=== PATIENT | female | born 2000 | race American Indian/Alaskan Native ===

== ENCOUNTER 2020-11-29 06:05 | Emergency (ER) | payer MEDICAID ==
--- NOTE | 2020-11-29 07:32 | Emergency Department Report ---
ED General Adult HPI - General Chief complaint: Upper Respiratory Infection Stated complaint: CHEST PAIN;SOB;DIZZY Time Seen by Provider: 11/29/20 07:27 Source: patient Mode of arrival: Ambulatory Limitations: No Limitations - History of Present Illness Initial comments: 20-year-old female patient with history of asthma presents to the emergency department with complaints of chest pain and shortness of breath starting 3 days ago. Patient states symptoms are inconsistent with prior asthma exacerbations. Describes the chest pain as "sharp," localized to the right anterolateral chest wall, easily reproducible with movement and palpation. No known sick contacts. No current steroid or antibiotic use. No recent travel. No venous thromboembolism risk factors identified on history. No history of tobacco use. No history of hypertension, hyperlipidemia, diabetes. No family history of early heart disease. LMP three weeks ago; denies possibility of . Patient has not delivered or aborted in the last six weeks. Denies fever, chills, cough, wheezing, palpitations, syncope, lower extremity pain/swelling. Denies all other complaints at this time. - Related Data Previous Rx's Medication Instructions Recorded Last Taken Type Acetaminophen [Non-Aspirin Extra 500 mg PO Q6HR PRN #30 tablet 04/04/20 Unknown Rx Strength] Albuterol Sulfate [Proair 90 mcg IH Q4HR PRN #2 aer.pow.ba 04/04/20 Unknown Rx Respiclick] Benzonatate [Tessalon Perles] 100 mg PO Q8HR PRN #30 capsule 04/04/20 Unknown Rx EPINEPHrine [Epipen 2-Rangel] 0.3 mg IM DAILY PRN #2 ml 04/04/20 Unknown Rx predniSONE [Deltasone] 40 mg PO QDAY #8 tab 04/04/20 Unknown Rx Lidocaine [Lidoderm] 1 each TP BID #20 adh..patch 11/29/20 Unknown Rx Naproxen 500 mg PO BID #20 tablet 11/29/20 Unknown Rx Allergies Allergy/AdvReac Type Severity Reaction Status Date / Time No Known Allergies Allergy Unverified 04/04/20 09:35 ED Review of Systems ROS: Stated complaint: CHEST PAIN;SOB;DIZZY Other details as noted in HPI Other: GENERAL: Negative for fever, chills, weight change, anorexia, fatigue. ENT: Negative for ear pain, difficulty hearing, sore throat, nasal congestion, epistaxis. CARDIOVASCULAR: Positive for chest pain. PULMONARY: Positive for shortness of breath GASTROINTESTINAL: Negative for abdominal pain, nausea, vomiting, diarrhea, constipation. MUSCULOSKELETAL: Negative for joint pain, joint swelling, myalgias, back pain, neck pain. NEUROLOGICAL: Positive for dizziness. INTEGUMENTARY: Negative for erythema, rash, diaphoresis, laceration, ecchymosis. HEMATOLOGICAL: Negative for hemoptysis, hematemesis, hematochezia, hematuria. PSYCHIATRIC: Negative for hallucinations, suicidal ideation, homicidal ideation, anxiety, depression. ED Past Medical Hx - Past Medical History Hx Asthma: Yes - Social History Smoking Status: Never Smoker - Medications Home Medications: Home Medications Medication Instructions Recorded Confirmed Last Taken Type Acetaminophen [Non-Aspirin Extra 500 mg PO Q6HR PRN #30 tablet 04/04/20 Unknown Rx Strength] Albuterol Sulfate [Proair 90 mcg IH Q4HR PRN #2 aer.pow.ba 04/04/20 Unknown Rx Respiclick] Benzonatate [Tessalon Perles] 100 mg PO Q8HR PRN #30 capsule 04/04/20 Unknown Rx EPINEPHrine [Epipen 2-Rangel] 0.3 mg IM DAILY PRN #2 ml 04/04/20 Unknown Rx predniSONE [Deltasone] 40 mg PO QDAY #8 tab 04/04/20 Unknown Rx Lidocaine [Lidoderm] 1 each TP BID #20 adh..patch 11/29/20 Unknown Rx Naproxen 500 mg PO BID #20 tablet 11/29/20 Unknown Rx ED Physical Exam - General Limitations: No Limitations - Other Other exam information: General: Awake and alert. No acute distress. BMI >30. Head: Atraumatic, normocephalic. Eyes: EOMI. Pupils are equal and round. Normal sclera and conjunctiva. ENT: Oral mucosa is moist. Normal pharyngeal exam. Neck: Supple. No lymphadenopathy. Pulmonary: No respiratory distress. Clear to auscultation bilaterally. Breath sounds equal and present bilaterally. Breathing is non-paradoxical. Cardiac: Regular rate and rhythm. Pulses are palpable and equal bilaterally. No lower extremity cyanosis or edema. Tenderness to palpation along right anterolateral chest wall without crepitus or overlying skin changes. Skin: Warm and dry. No rashes. Abdomen: Soft, non-tender, non-protuberant. No guarding, rigidity, or rebound. Bowel sounds are normal. No organomegaly or masses noted. Back: Normal alignment. No CVA tenderness. Extremities: Symmetrical. Full range of motion intact. Neurological: Alert and oriented, appropriately interactive, no focal deficits. Psych: Cooperative. Appropriate mood and affect. Speech is evenly metered. Thoughts are logically construed. ED Course Vital Signs 11/29/20 06:10 Temperature 97.8 F Pulse Rate 68 Respiratory 18 Rate O2 Sat by Pulse 99 Oximetry ED Medical Decision Making - EKG Data 11/29/20 08:26 EKG shows bradycardia with a ventricular rate of 55 bpm, irregular. First- degree AV block with OK interval of 201 ms. Normal axis. Normal QT interval. Good R wave progression. No ST segment changes. Unchanged when compared with prior EKG in 2019. Over read by attending emergency physician, who agrees with this interpretation. 11/29/20 10:30 - Medical Decision Making Differential diagnosis including but not limited to: asthma exacerbation, pleural effusion, pneumothorax, pulmonary embolism, pericarditis, pericardial effusion/cardiac tamponade, costochondritis Patient presents to the emergency department with signs and/or symptoms that arise low risk clinical suspicion for pulmonary embolism. The patient has none of the following clinical criteria: age >50, heart rate >100, room air O2 saturation <94%, history of DVT/PE, recent trauma/surgery, hemoptysis, exogenous estrogen, or signs/symptoms of DVT. As a result, this patient has very low probability of pulmonary embolism and further testing is not indicated. On reevaluation, patient remains stable. She is afebrile, vital signs are stable, no respiratory distress. EKG reviewed with attending emergency physician; unchanged from prior tracing in 2019. Chest x-ray without acute process. Exceedingly low clinical suspicion for acute coronary syndrome; no r isk factors identified on history, anterolateral chest pain is sharp and easily reproducible. Suspect patient's chest pain is musculoskeletal in nature. Patient will be discharged home with appropriate analgesics and referred to primary care provider for close outpatient follow-up. Patient expressed understanding and is agreeable to plan of care. Strict return precautions provided. Repeat exam is unremarkable and benign. History, exam, diagnostic testing, and current condition do not suggest worrisome pathology to warrant further testing, continued ED treatment, admission, or surgical evaluation at this point. Given the low probability of a significant medical illness, it would be more likely to result in harm than benefit to perform further testing at this stage. Discussed findings, presumptive diagnosis, need for follow-up and specific signs/symptoms that should prompt immediate return to the emergency department. Instructions were explained in detail to the patient in addition to giving written discharge information. Patient expressed understanding and was given the opportunity to ask questions, all of which were satisfactorily answered prior to discharge home. Case discussed with Dr. Paulino, attending emergency physician, who agrees with diagnostic work-up/plan of care. Critical care attestation.: If time is entered above; I have spent that time in minutes in the direct care of this critically ill patient, excluding procedure time. ED Disposition Clinical Impression: Nonspecific chest pain Disposition: - TO HOME OR SELFCARE Is pt being admited?: No Does the pt Need Aspirin: No Condition: Stable Instructions: Nonspecific Chest Pain, Adult Additional Instructions: Take Tylenol every 4 hours as needed for pain. Take Naprosyn twice daily with food as needed for pain. Apply Lidoderm patches to affected area as needed for pain. Apply heat to affected area as needed for pain. Follow-up with your primary care provider this week. Call today to schedule an appointment. Return to the emergency department immediately for new or worsening symptoms. Prescriptions: Lidocaine [Lidoderm] 1 each TP BID #20 adh..patch Naproxen 500 mg PO BID #20 tablet Referrals: AZALEA HAGAN MD [Other] - 3-5 Days Forms: Work/School Release Form(ED) Time of Disposition: 10:32
--- NOTE | 2020-11-29 09:07 | XRay Report ---
CHEST 2 VIEWS INDICATION: chest pain. COMPARISON: 04/04/2020 FINDINGS: Support devices: None. Heart: Within normal limits. Lungs/pleura: No acute air space or interstitial disease. No pneumothorax. Additional findings: None. IMPRESSION: No acute findings. Signer Name: Morgan Rico Jr, MD Signed: 11/29/2020 9:03 AM Workstation Name: [id number]
--- NOTE | 2020-11-29 10:32 | Electrocardiograph Report ---
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
== END 2020-11-29 10:45 | disposition home or self-care (01) ==
LOC: ED 06:05
DX: R07.89 Other chest pain (principal); J45.909 Unspecified asthma, uncomplicated; Z79.899 Other long term (current) drug therapy
CPT/HCPCS: 71046; 93005

== ENCOUNTER 2021-01-23 20:30 | Emergency (ER) | payer MEDICAID ==
[2021-01-23 21:25] VITALS: BP 110/60
--- NOTE | 2021-01-23 21:35 | XRay Report ---
RIGHT ANKLE 3 VIEW(S) INDICATION / CLINICAL INFORMATION: Lower Extremity Injury...fell down stairs COMPARISON: None available. FINDINGS: BONES / JOINT(S): No acute fracture or subluxation. No significant arthritis. SOFT TISSUES: There is soft tissue swelling over the lateral malleolus. ADDITIONAL FINDINGS: None. Signer Name: Selwyn Serrano MD Signed: 01/23/2021 9:31 PM Workstation Name: [id number]
[2021-01-23] MEDS ORDERED: ACETAMINOPHEN 325 MG TAB PO ONE (22:14)
[2021-01-23] MEDS ORDERED: IBUPROFEN 600 MG TAB PO ONE (22:14)
--- NOTE | 2021-01-23 22:19 | Emergency Department Report ---
ED Lower Extremity HPI - General Chief Complaint: Extremity Injury, Lower Stated Complaint: RT ANKLE PAIN Time Seen by Provider: 01/23/21 21:35 Source: patient Mode of arrival: Wheelchair Limitations: Physical Limitation - History of Present Illness Initial Comments: 20 year old female presents to ED complaining of right lower leg/ankle pain. Patient states she slipped on steps because it was wet. She states that she slid down 4 steps and heard a pop in her right lower leg right ankle at the time she fell. Since then she has been having severe pain in her right ankle and right lower leg swelling over the lateral aspect of her right ankle and pain with ambulation and weightbearing. She states that this incident occurred around 7 PM at home. She denies any head injury. She reports no other symptoms at this time. 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 denies: numbness, tingling - Related Data Previous Rx's Medication Instructions Recorded Last Taken Type Acetaminophen [Non-Aspirin Extra 500 mg PO Q6HR PRN #30 tablet 04/04/20 Unknown Rx Strength] Albuterol Sulfate [Proair 90 mcg IH Q4HR PRN #2 aer.pow.ba 04/04/20 Unknown Rx Respiclick] Benzonatate [Tessalon Perles] 100 mg PO Q8HR PRN #30 capsule 04/04/20 Unknown Rx EPINEPHrine [Epipen 2-Rangel] 0.3 mg IM DAILY PRN #2 ml 04/04/20 Unknown Rx predniSONE [Deltasone] 40 mg PO QDAY #8 tab 04/04/20 Unknown Rx Lidocaine [Lidoderm] 1 each TP BID #20 adh..patch 11/29/20 Unknown Rx Naproxen 500 mg PO BID #20 tablet 11/29/20 Unknown Rx Ibuprofen [Motrin] 800 mg PO Q8HR PRN #30 tablet 01/23/21 Unknown Rx Allergies Allergy/AdvReac Type Severity Reaction Status Date / Time No Known Allergies Allergy Unverified 04/04/20 09:35 ED Review of Systems ROS: Stated complaint: RT ANKLE PAIN Other details as noted in HPI Comment: All other systems reviewed and negative Constitutional: denies: chills, fever Eyes: denies: eye pain, eye discharge, vision change ENT: denies: ear pain, throat pain Respiratory: denies: cough, shortness of breath, SOB with exertion, SOB at rest, wheezing Cardiovascular: denies: chest pain, palpitations, dyspnea on exertion, edema, syncope, paroxysmal nocturnal dyspnea Endocrine: no symptoms reported Gastrointestinal: denies: abdominal pain, nausea, diarrhea, constipation, hematemesis, hematochezia Genitourinary: denies: urgency, dysuria, discharge Musculoskeletal: joint swelling, arthralgia Skin: denies: rash, lesions, change in color, change in hair/nails, pruritus Neurological: denies: headache, weakness, paresthesias, confusion, abnormal gait, vertigo Psychiatric: denies: anxiety, depression, auditory hallucinations, visual hallucinations, homicidal thoughts, suicidal thoughts Hematological/Lymphatic: denies: easy bleeding, easy bruising, swollen glands ED Past Medical Hx - Past Medical History Previous Medical History?: Yes Hx Asthma: Yes - Surgical History Past Surgical History?: No - Social History Smoking Status: Never Smoker - Medications Home Medications: Home Medications Medication Instructions Recorded Confirmed Last Taken Type Acetaminophen [Non-Aspirin Extra 500 mg PO Q6HR PRN #30 tablet 04/04/20 Unknown Rx Strength] Albuterol Sulfate [Proair 90 mcg IH Q4HR PRN #2 aer.pow.ba 04/04/20 Unknown Rx Respiclick] Benzonatate [Tessalon Perles] 100 mg PO Q8HR PRN #30 capsule 04/04/20 Unknown Rx EPINEPHrine [Epipen 2-Rangel] 0.3 mg IM DAILY PRN #2 ml 04/04/20 Unknown Rx predniSONE [Deltasone] 40 mg PO QDAY #8 tab 04/04/20 Unknown Rx Lidocaine [Lidoderm] 1 each TP BID #20 adh..patch 11/29/20 Unknown Rx Naproxen 500 mg PO BID #20 tablet 11/29/20 Unknown Rx Ibuprofen [Motrin] 800 mg PO Q8HR PRN #30 tablet 01/23/21 Unknown Rx ED Physical Exam - General Limitations: Physical Limitation General appearance: alert, other (patient appears uncomfortable and in pain ) - Head Head exam: Present: atraumatic, normocephalic, normal inspection - Respiratory Respiratory exam: Absent: respiratory distress - Cardiovascular Cardiovascular Exam: Present: regular rate - Expanded Lower Extremity Exam Right Lower Leg exam: Present: normal inspection, tenderness (Mid to distal lateral right lower leg ). Absent: swelling, abrasion, laceration, ecchymosis, deformity, crepidus, dislocation, erythema, palpable cord, Amalia's sign Ankle exam: Present: tenderness (anterior right ankle and lateral malleoulus ), swelling (Mild lateral malleoulus ). Absent: full ROM (ROM reduced due to pain ), abrasion, laceration, ecchymosis, deformity, crepidus, dislocation, erythema Neuro vascular tendon exam: Present: no vascular compromise. Absent: abnormal cap refill Gait: Positive: not tested/not observed - Neurological Exam Neurological exam: Present: alert, oriented X3, CN II-XII intact - Psychiatric Psychiatric exam: Present: normal affect, normal mood - Skin Skin exam: Present: intact ED Course Vital Signs 01/23/21 21:09 Temperature 98.4 F Pulse Rate 84 Respiratory 21 Rate Blood Pressure 110/60 O2 Sat by Pulse 99 Oximetry ED Lower Extremity MDM - Radiology Data Radiology results: report reviewed Patient: JAE DUNN MR#: [id number] : 2000 Acct:[id number] Age/Sex: 20 / F ADM Date: 01/23/21 Loc: ED Attending Dr: Ordering Physician: JACK LOZANO Date of Service: 01/23/21 Procedure(s): XR tibia fibula 2V RT Accession Number(s): [id number] cc: JACK LOZANO Fluoro Time In Minutes: Right tibia-fibula radiograph, 3 views HISTORY: Pain COMPARISON: None FINDINGS: Soft tissue swelling of the lateral ankle. No acute fracture or malalignment of the right foreleg. Signer Name: Shady Madison MD Signed: 01/23/2021 11:23 PM Workstation Name: [id number] Transcribed By: YESIKA Dictated By: SHADY MADISON MD Electronically Authenticated By: SHADY MADISON MD Signed Date/Time: 01/23/212322 DD/ 22 TD/TT: - Medical Decision Making X-ray of the tib-fib and ankle shows nothing acute. No neurovascular compromise on exam. suspect sprain at this time. Carroll wrap and ankle air splint applied. Patient given crutches. Discussed x-ray results, suspected diagnosis and treatment plan with patient. She expressed understanding of instructions and agree with plan. Patient stable at time of discharge. Critical care attestation.: If time is entered above; I have spent that time in minutes in the direct care of this critically ill patient, excluding procedure time. ED Disposition Clinical Impression: Ankle sprain Disposition: - TO HOME OR SELFCARE Is pt being admited?: No Does the pt Need Aspirin: No Condition: Stable Instructions: Ankle Sprain, [id number], Elastic Bandage and RICE Therapy Additional Instructions: Use the Ankle airsplint/carroll wrap as discussed. Follow the RICE instructions listed on your discharge instructions. Take the ibuprofen as prescribed. Use the crutches to help ambulate. Follow-up with security assurance specialist in 1 week if your symptoms persist. Return to the ER if your symptoms changes or worsens in any way. Prescriptions: Ibuprofen [Motrin] 800 mg PO Q8HR PRN #30 tablet PRN Reason: Pain Referrals: JACKELINE HARDING MD [Staff Physician] - 7-10 days Forms: Work/School Release Form(ED) Time of Disposition: 23:34
--- NOTE | 2021-01-23 23:28 | XRay Report ---
Right tibia-fibula radiograph, 3 views HISTORY: Pain COMPARISON: None FINDINGS: Soft tissue swelling of the lateral ankle. No acute fracture or malalignment of the right f oreleg. Signer Name: Yobani Madison MD Signed: 01/23/2021 11:23 PM Workstation Name: [id number]
== END 2021-01-24 00:35 | disposition home or self-care (01) ==
LOC: ED 20:30
DX: S93.401A Sprain of unspecified ligament of right ankle, initial encounter (principal); J45.909 Unspecified asthma, uncomplicated; Z79.899 Other long term (current) drug therapy; W10.8XXA Fall (on) (from) other stairs and steps, initial encounter; Y93.89 Activity, other specified; Y92.099 Unspecified place in other non-institutional residence as the place of occurrence of the external cause; Y99.8 Other external cause status

== ENCOUNTER 2021-07-12 13:16 | Emergency (ER) | payer MEDICAID ==
[2021-07-12] MEDS ORDERED: methylPREDNISolone Sod Succinate 125 MG/2 ML INJ IV ONE (13:34)
[2021-07-12] MEDS ORDERED: ALBUTEROL 2.5 MG/3 ML NEBU IH ONE (13:34)
[2021-07-12] MEDS ORDERED: MAGNESIUM SULFATE 2 GM/50 ML BAG IV ONE (13:34)
[2021-07-12] MEDS ORDERED: IPRATROPIUM 0.02% NEBU 2.5 ML IH ONE (13:35)
[2021-07-12] MEDS ORDERED: LORazepam 2 MG/ML VIAL IV ONE (13:35)
--- NOTE | 2021-07-12 13:37 | Emergency Department Report ---
ED General Adult HPI - General Chief complaint: Chest Pain Stated complaint: ASTHMA ATTACK Time Seen by Provider: 07/12/21 13:30 Source: patient Mode of arrival: Wheelchair Limitations: No Limitations - History of Present Illness Initial comments: Patient is 20 years old female with history of asthma. Patient presented to the ER complaining of shortness of breath and generalized wheezing since yesterday. Patient stated that her symptoms getting worse. She stated that she was albuterol with no improvement. Patient denied any fever or chills. No nausea or vomiting. - Related Data Previous Rx's Medication Instructions Recorded Last Taken Type Acetaminophen [Non-Aspirin Extra 500 mg PO Q6HR PRN #30 tablet 04/04/20 Unknown Rx Strength] Albuterol Sulfate [Proair 90 mcg IH Q4HR PRN #2 aer.[email or web address] 04/04/20 Unknown Rx Respiclick] Benzonatate [Tessalon Perles] 100 mg PO Q8HR PRN #30 capsule 04/04/20 Unknown Rx EPINEPHrine [Epipen 2-Rangel] 0.3 mg IM DAILY PRN #2 ml 04/04/20 Unknown Rx predniSONE [Deltasone] 40 mg PO QDAY #8 tab 04/04/20 Unknown Rx Lidocaine [Lidoderm] 1 each TP BID #20 adh..patch 11/29/20 Unknown Rx Naproxen 500 mg PO BID #20 tablet 11/29/20 Unknown Rx Ibuprofen [Motrin] 800 mg PO Q8HR PRN #30 tablet 01/23/21 Unknown Rx Acetaminophen/Codeine [Tylenol 1 tab PO Q8H PRN #6 tab 06/24/21 Unknown Rx /Codeine # 3 tab] Ibuprofen [Motrin 800 MG tab] 800 mg PO Q8HR PRN #20 tablet 06/24/21 Unknown Rx LORazepam [Ativan] 1 mg PO BID PRN #6 tab 06/24/21 Unknown Rx Penicillin V Potassium 500 mg PO QID 7 Days #28 tablet 06/24/21 Unknown Rx Allergies Allergy/AdvReac Type Severity Reaction Status Date / Time No Known Allergies Allergy Verified 07/12/21 13:18 ED Review of Systems ROS: Stated complaint: ASTHMA ATTACK Other details as noted in HPI Comment: All other systems reviewed and negative Constitutional: denies: chills, fever Respiratory: cough, shortness of breath, wheezing Cardiovascular: chest pain. denies: palpitations Gastrointestinal: denies: abdominal pain, nausea, vomiting, diarrhea ED Past Medical Hx - Past Medical History Hx Asthma: Yes - Social History Smoking Status: Never Smoker - Medications Home Medications: Home Medications Medication Instructions Recorded Confirmed Last Taken Type Acetaminophen [Non-Aspirin Extra 500 mg PO Q6HR PRN #30 tablet 04/04/20 07/12/21 Unknown Rx Strength] Albuterol Sulfate [Proair 90 mcg IH Q4HR PRN #2 aer.pow.ba 04/04/20 07/12/21 Unknown Rx Respiclick] Benzonatate [Tessalon Perles] 100 mg PO Q8HR PRN #30 capsule 04/04/20 07/12/21 Unknown Rx EPINEPHrine [Epipen 2-Rangel] 0.3 mg IM DAILY PRN #2 ml 04/04/20 07/12/21 Unknown Rx predniSONE [Deltasone] 40 mg PO QDAY #8 tab 04/04/20 07/12/21 Unknown Rx Lidocaine [Lidoderm] 1 each TP BID #20 adh..patch 11/29/20 07/12/21 Unknown Rx Naproxen 500 mg PO BID #20 tablet 11/29/20 07/12/21 Unknown Rx Ibuprofen [Motrin] 800 mg PO Q8HR PRN #30 tablet 01/23/21 07/12/21 Unknown Rx Acetaminophen/Codeine [Tylenol 1 tab PO Q8H PRN #6 tab 06/24/21 07/12/21 Unknown Rx /Codeine # 3 tab] Ibuprofen [Motrin 800 MG tab] 800 mg PO Q8HR PRN #20 tablet 06/24/21 07/12/21 Unknown Rx LORazepam [Ativan] 1 mg PO BID PRN #6 tab 06/24/21 07/12/21 Unknown Rx Penicillin V Potassium 500 mg PO QID 7 Days #28 tablet 06/24/21 07/12/21 Unknown Rx ED Physical Exam - General Limitations: No Limitations General appearance: alert, in no apparent distress - Head Head exam: Present: atraumatic, normocephalic, normal inspection - Eye Eye exam: Present: normal appearance, PERRL - ENT ENT exam: Present: normal exam, normal orophraynx, mucous membranes moist - Neck Neck exam: Present: normal inspection, full ROM. Absent: tenderness, meningismus - Respiratory Respiratory exam: Present: wheezes, rhonchi, decreased breath sounds, prolonged expiratory. Absent: respiratory distress - Cardiovascular Cardiovascular Exam: Present: regular rate, normal rhythm, normal heart sounds - GI/Abdominal GI/Abdominal exam: Present: soft, normal bowel sounds. Absent: distended, tenderness, guarding, rebound, rigid, organomegaly, mass, bruit, pulsatile mass, hernia - Extremities Exam Extremities exam: Present: normal inspection, full ROM, normal capillary refill. Absent: tenderness - Back Exam Back exam: Present: normal inspection, full ROM. Absent: CVA tenderness (R), CVA tenderness (L) - Neurological Exam Neurological exam: Present: alert, oriented X3, CN II-XII intact, normal gait, reflexes normal. Absent: motor sensory deficit - Psychiatric Psychiatric exam: Present: normal mood - Skin Skin exam: Present: warm, intact, normal color ED Course Vital Signs 07/12/21 07/12/21 07/12/21 13:17 15:03 15:26 Temperature 98 F Pulse Rate 94 H Pulse Rate [ 72 Anterior Bilateral Throughout] Respiratory 18 Rate Respiratory 18 Rate [Anterior Bilateral Throughout] Blood Pressure 104/77 [Left] O2 Sat by Pulse 100 98 Oximetry 07/12/21 15:28 Temperature 98.1 F Pulse Rate 88 Pulse Rate [ Anterior Bilateral Throughout] Respiratory 18 Rate Respiratory Rate [Anterior Bilateral Throughout] Blood Pressure 129/69 [Left] O2 Sat by Pulse 99 Oximetry ED Medical Decision Making - Lab Data Result diagrams: 07/12/21 13:59 07/12/21 13:59 - Radiology Data Radiology results: report reviewed - Medical Decision Making Patient is 20 years old female with history of asthma. Patient presented to the ER complaining of shortness of breath and generalized wheezing since yesterday. Patient stated that her symptoms getting worse. She stated that she was albuterol with no improvement. Patient denied any fever or chills. No nausea o r vomiting. Labs reviewed and is unremarkable chest x-ray is negative for acute finding. Patient received albuterol, Atrovent, Solu-Medrol, magnesium sulfate and Ativan. Patient stated that she is feeling much better. Patient given prescription for prednisone and advised to follow-up with her primary doctor in the next 2 to 3 days and to return to the ER if she develop any new symptoms. Critical care attestation.: If time is entered above; I have spent that time in minutes in the direct care of this critically ill patient, excluding procedure time. ED Disposition Clinical Impression: Acute asthma exacerbation Disposition: HOME / SELF CARE / HOMELESS Is pt being admited?: No Condition: Stable Instructions: Asthma Attack Referrals: PRIMARY CARE, [Primary Care Provider] - 3-5 Days
--- NOTE | 2021-07-12 14:00 | XRay Report ---
CHEST 1 VIEW 07/12/2021 1:52 PM INDICATION / CLINICAL INFORMATION: Shortness of breath. COMPARISON: 11/29/20. FINDINGS: SUPPORT DEVICES: None. HEART / MEDIASTINUM: The heart size and pulmonary vasculature are normal. LUNGS / PLEURA: No significant pulmonary or pleural abnormality. No pneumothorax. ADDITIONAL FINDINGS: No significant additional findings. IMPRESSION: No acute abnormality or significant change. Signer Name: Demond Solomon MD Signed: 07/12/2021 1:56 PM Workstation Name: [id number]
[2021-07-12 15:19] LABS: Basophils % (Auto) 0.7 % (0.0-1.8); Eosinophils # (Auto) 0.3 K/mm3 (0.0-0.4); Eosinophils % (Auto) 4.9 % (0.0-4.3); Hematocrit 33.5 % (30.3-42.9); Hemoglobin 10.4 gm/dl (10.1-14.3); Lymphocytes # (Auto) 1.4 K/mm3 (1.2-5.4); Lymphocytes % (Auto) 25.1 % (13.4-35.0); Mean Corpuscular HGB Conc 31 % (30-34); Mean Corpuscular Volume 83 fl (79-97); Monocytes # (Auto) 0.5 K/mm3 (0.0-0.8); Monocytes % (Auto) 8.4 % (0.0-7.3); Platelet Count 293 K/mm3 (140-440); Red Blood Count 4.02 M/mm3 (3.65-5.03); Red Cell Distribution Width 14.3 % (13.2-15.2)
[2021-07-12 15:31] LABS: Blood Urea Nitrogen 7 mg/dL (7-17); Calcium 9.1 mg/dL (8.4-10.2); Hemolysis Index 2
[2021-07-12 15:32] LABS: BUN/Creatinine Ratio 10
[2021-07-12] MEDS ORDERED: KETOROLAC 30 MG/1 ML INJ IV ONE (18:33)
[2021-07-12 19:25] VITALS: BP 122/74
--- NOTE | 2021-07-13 09:38 | Electrocardiograph Report ---
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
== END 2021-07-12 19:24 | disposition home or self-care (01) ==
LOC: ED 13:16
DX: J45.901 Unspecified asthma with (acute) exacerbation (principal)
CPT/HCPCS: 36415; 71045; 80048; 85025; 93005; 94640; 96365; 96375; 99284; J1885; J2060; J2930; J3475; 94644

== ENCOUNTER 2021-07-13 14:56 | Emergency (ER) | payer MEDICAID ==
[2021-07-13 16:27] VITALS: BP 149/75
== END 2021-07-13 19:30 ==
LOC: ED 14:56
DX: R51.9 Headache, unspecified (principal); Z53.21 Procedure and treatment not carried out due to patient leaving prior to being seen by health care provider

== ENCOUNTER 2021-08-28 08:54 | Emergency (ER) | payer MEDICAID ==
[2021-08-28] MEDS ORDERED: HYDROmorphone 1 MG/1 ML INJ IV ONE (09:55)
[2021-08-28] MEDS ORDERED: SODIUM CHLORIDE 0.9% 1000 ML 1,000 ML IV ONE (09:56)
[2021-08-28] MEDS ORDERED: methylPREDNISolone Sod Succinate 125 MG/2 ML INJ IV ONE (09:57)
--- NOTE | 2021-08-28 09:57 | Emergency Department Report ---
ED ENT HPI - General Chief complaint: Dental/Oral Stated complaint: face swelling Time Seen by Provider: 08/28/21 09:55 Source: patient Mode of arrival: Ambulatory Limitations: No Limitations - History of Present Illness Initial comments: 20 yo AA comes to er with left mandibular swelling; inc since Sat. 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 - Related Data Previous Rx's Medication Instructions Recorded Last Taken Type Amoxicillin [Trimox CAP] 500 mg PO BID #20 capsule 08/28/21 Unknown Rx Allergies Allergy/AdvReac Type Severity Reaction Status Date / Time No Known Allergies Allergy Verified 07/12/21 13:18 ED Dental HPI - General Chief complaint: Dental/Oral Stated complaint: ANGIOEDEMA Time Seen by Provider: 08/28/21 09:55 Source: patient Mode of arrival: Ambulatory Limitations: No Limitations - Related Data Previous Rx's Medication Instructions Recorded Last Taken Type Amoxicillin [Trimox CAP] 500 mg PO BID #20 capsule 08/28/21 Unknown Rx Allergies Allergy/AdvReac Type Severity Reaction Status Date / Time No Known Allergies Allergy Verified 07/12/21 13:18 ED Review of Systems ROS: Stated complaint: ANGIOEDEMA Other details as noted in HPI Comment: All other systems reviewed and negative ED Past Medical Hx - Past Medical History Previous Medical History?: Yes Hx Asthma: Yes - Surgical History Past Surgical History?: No - Family History Family history: no significant - Social History Smoking Status: Never Smoker Substance Use Type: None - Medications Home Medications: Home Medications Medication Instructions Recorded Confirmed Last Taken Type Amoxicillin [Trimox CAP] 500 mg PO BID #20 capsule 08/28/21 Unknown Rx ED Physical Exam - General Limitations: No Limitations General appearance: alert, in no apparent distress - Head Head exam: Present: atraumatic, normocephalic - Eye Eye exam: Present: normal appearance - ENT ENT exam: Present: mucous membranes moist - Expanded ENT Exam Expanded Mouth exam: Absent: drooling, trismus, muffled voice, tongue normal, tongue elevation Teeth exam: Present: normal inspection 1 - Other (area of swelling) Throat exam: Positive: normal inspection - Neck Neck exam: Present: normal inspection - Respiratory Respiratory exam: Present: normal lung sounds bilaterally. Absent: respiratory distress - Cardiovascular Cardiovascular Exam: Present: regular rate, normal rhythm. Absent: systolic murmur, diastolic murmur, rubs, gallop - GI/Abdominal GI/Abdominal exam: Present: soft, normal bowel sounds - Extremities Exam Extremities exam: Present: normal inspection - Back Exam Back exam: Present: normal inspection - Neurological Exam Neurological exam: Present: alert, oriented X3 - Psychiatric Psychiatric exam: Present: normal affect, normal mood - Skin Skin exam: Present: warm, dry, intact, normal color. Absent: rash ED Course Vital Signs 08/28/21 08/28/21 09:41 12:11 Temperature 98.4 F 98.0 F Pulse Rate 83 92 H Respiratory 18 16 Rate Blood Pressure 125/64 Blood Pressure 168/100 [Left] O2 Sat by Pulse 100 100 Oximetry ED Medical Decision Making - Lab Data Result diagrams: 08/28/21 10:33 08/28/21 10:33 - Medical Decision Making Lab Results 08/28/21 08/28/21 08/28/21 Range/Units 10:33 10:33 10:33 WBC 7.2 (4.5-11.0) K/mm3 RBC 3.99 (3.65-5.03) M/mm3 Hgb 10.7 (10.1-14.3) gm/dl Hct 32.2 (30.3-42.9) % MCV 81 (79-97) fl MCH 27 L (28-32) pg MCHC 33 (30-34) % RDW 14.1 (13.2-15.2) % Plt Count 247 (140-440) K/mm3 Lymph % (Auto) 19.1 (13.4-35.0) % [place] % (Auto) 9.4 H (0.0-7.3) % Eos % (Auto) 6.1 H (0.0-4.3) % Baso % (Auto) 0.7 (0.0-1.8) % Lymph # (Auto) 1.4 (1.2-5.4) K/mm3 [place] # (Auto) 0.7 (0.0-0.8) K/mm3 Eos # (Auto) 0.4 (0.0-0.4) K/mm3 Baso # (Auto) 0.1 (0.0-0.1) K/mm3 Seg Neutrophils % 64.7 (40.0-70.0) % Seg Neutrophils # 4.6 (1.8-7.7) K/mm3 Sodium 138 (137-145) mmol/L Potassium 4.0 (3.6-5.0) mmol/L Chloride 105.6 (98-107) mmol/L Carbon Dioxide 21 L (22-30) mmol/L Anion Gap 15 mmol/L BUN 10 (7-17) mg/dL Creatinine 0.7 (0.6-1.2) mg/dL Estimated GFR > 60 ml/min BUN/Creatinine Ratio 14 % Glucose 89 (65-100) mg/dL Calcium 8.4 (8.4-10.2) mg/dL HCG, Quant 12.03 H (0-4) mIU/mL Vital Signs 08/28/21 09:41 Temperature 98.4 F Pulse Rate 83 Respiratory 18 Rate Blood Pressure 125/64 O2 Sat by Pulse 100 Oximetry no ludwigs no trismus no visible pharyngeal abscess no sinus pain on palpation vss no indication of sepsis I was going to CT her but her preg in prep for CT was pos She is due for her menses any day when I told her of result she was pleasantly surprised Given clinda and NS in ER medicated for pain With findings I told her we would not CT her but she needed to take meds as ordered and see dmd taylor. She is going to repeat home preg test in 1 week. on dc pt ambulatory, taking po and in nad - Differential Diagnosis dental abscess Critical care attestation.: If time is entered above; I have spent that time in minutes in the direct care of this critically ill patient, excluding procedure time. ED Disposition Clinical Impression: Dental abscess, , Obesity Disposition: 01 HOME / SELF CARE / HOMELESS Is pt being admited?: No Does the pt Need Aspirin: No Condition: Stable Instructions: Dental Abscess Additional Instructions: tylenol for pain meds as ordered until gone follow up with dentist taylor referral below Prescriptions: Amoxicillin [Trimox CAP] 500 mg PO BID #20 capsule Referrals: PRIMARY CARE, [Primary Care Provider] - 3-5 Days [facility] [Outside] - 3-5 Days [facility] [Outside] - 3-5 Days Time of Disposition: 11:37
[2021-08-28 11:05] LABS: Basophils # (Auto) 0.1 K/mm3 (0.0-0.1); Basophils % (Auto) 0.7 % (0.0-1.8); Eosinophils # (Auto) 0.4 K/mm3 (0.0-0.4); Eosinophils % (Auto) 6.1 % (0.0-4.3); Hematocrit 32.2 % (30.3-42.9); Hemoglobin 10.7 gm/dl (10.1-14.3); Lymphocytes # (Auto) 1.4 K/mm3 (1.2-5.4); Lymphocytes % (Auto) 19.1 % (13.4-35.0); Mean Corpuscular HGB Conc 33 % (30-34); Mean Corpuscular Volume 81 fl (79-97); Monocytes # (Auto) 0.7 K/mm3 (0.0-0.8); Monocytes % (Auto) 9.4 % (0.0-7.3); Platelet Count 247 K/mm3 (140-440); Red Blood Count 3.99 M/mm3 (3.65-5.03); Red Cell Distribution Width 14.1 % (13.2-15.2)
[2021-08-28 11:18] LABS: Blood Urea Nitrogen 10 mg/dL (7-17); Calcium 8.4 mg/dL (8.4-10.2); Hemolysis Index 4
[2021-08-28 11:21] LABS: BUN/Creatinine Ratio 14
[2021-08-28 12:15] VITALS: BP 168/100
== END 2021-08-28 12:15 | disposition home or self-care (01) ==
LOC: ED 08:54
DX: K04.7 Periapical abscess without sinus (principal); E66.9 Obesity, unspecified; J45.909 Unspecified asthma, uncomplicated; Z33.1 Pregnant state, incidental
CPT/HCPCS: 36415; 80048; 84702; 85025; 96365; 96375; 99283; J1170; J2930; J7030; J7502; 96361; Q0162

== ENCOUNTER 2021-09-06 21:31 | Emergency (ER) | payer MEDICAID ==
[2021-09-06] MEDS ORDERED: ALBUTEROL 2.5 MG/3 ML NEBU IH ONE (22:24)
[2021-09-06] MEDS ORDERED: predniSONE 20 MG TAB PO ONE (22:24)
[2021-09-06] MEDS ORDERED: ACETAMINOPHEN 325 MG TAB PO ONE (22:24)
[2021-09-06] MEDS ORDERED: IPRATROPIUM 0.02% NEBU 2.5 ML IH ONE (22:24)
--- NOTE | 2021-09-06 22:33 | Emergency Department Report ---
ED General Adult HPI - General Chief complaint: Adult Asthma Stated complaint: SOB PUI?: Yes Time Seen by Provider: 09/06/21 22:12 Source: patient, RN notes reviewed, old records reviewed Mode of arrival: Ambulatory Limitations: No Limitations - History of Present Illness Initial comments: The patient was evaluated in the emergency department for symptoms described in the history of present illness. He/she was evaluated in the context of the global COVID-19 pandemic, which necessitated consideration that the patient might be at risk for infection with the virus that causes COVID-19. Institutional protocols and algorithms that pertain to the evaluation of patients at risk for COVID-19 are in a state of rapid change based on information released by regulatory bodies including the CDC and federal and state organizations. These policies and algorithms were followed during the patient's care in the emergency department. Please note that these policies, procedures and recommendations changed on a rapid basis. During the history and physical examination, I am chaperoned by Brittany Holland The patient is a 20-year-old female. She has a history of body mass index of 38, reports that she believes that she is today, and reports that she is 2, para 0. She was seen in this department around 10 days ago for dental related issues, and had a quant hCG of 12. She reports she has not followed up with an outpatient audiology technician. She does not know her last menstruation. She also has a history of asthma She is also not vaccinated against COVID-19. She has also not received her COVID-19 booster. She presents to the ER today with a complaint of muscular mechanical back pain, cough, mucus production, lightheadedness, fatigue, and the believe that she may have passed out or lost consciousness at around 12:00 today. Prior to passing out and/or losing consciousness, she reports that she was in her usual state of health, with the exception of the aforementioned symptoms. She denies loss of taste and smell. She endorses muscle aches. She denies travel, surgery, immobilization, posterior leg pain or leg swelling. She has not attempted any analgesia [id number]. On review of systems, also endorses dysuria today. No vaginal bleeding -: Sudden Location: back, left, right, upper extremity, lower extremity Quality: aching Improves with: rest Worsens with: movement - Related Data Previous Rx's Medication Instructions Recorded Last Taken Type Amoxicillin [Trimox CAP] 500 mg PO BID #20 capsule 08/28/21 Unknown Rx Acetaminophen [Non-Aspirin Extra 500 mg PO Q6HR PRN #30 tablet 09/07/21 Unknown Rx Strength] Albuterol Sulfate [Proair 90 mcg IH Q4HR PRN #2 aer.[email or web address] 09/07/21 Unknown Rx Respiclick] Sherin Root [Sherin] 250 mg PO QID PRN #30 capsule 09/07/21 Unknown Rx Vit-Fe Fumar-FA [ 1 tab PO QDAY #30 tablet 09/07/21 Unknown Rx Vitamin] predniSONE [Deltasone] 40 mg PO QDAY #8 tab 09/07/21 Unknown Rx Allergies Allergy/AdvReac Type Severity Reaction Status Date / Time No Known Allergies Allergy Verified 07/12/21 13:18 ED Review of Systems ROS: Stated complaint: SOB Other details as noted in HPI Constitutional: malaise. denies: fever Eyes: denies: eye discharge ENT: congestion Respiratory: cough, wheezing Cardiovascular: syncope Gastrointestinal: denies: abdominal pain, nausea, vomiting, diarrhea Genitourinary: dysuria Musculoskeletal: back pain, arthralgia, myalgia Neurological: headache, weakness Psychiatric: anxiety ED Past Medical Hx - Past Medical History Previous Medical History?: Yes Hx Asthma: Yes - Surgical History Past Surgical History?: No - Social History Smoking Status: Never Smoker Substance Use Type: None - Medications Home Medications: Home Medications Medication Instructions Recorded Confirmed Last Taken Type Amoxicillin [Trimox CAP] 500 mg PO BID #20 capsule 08/28/21 Unknown Rx Acetaminophen [Non-Aspirin Extra 500 mg PO Q6HR PRN #30 tablet 09/07/21 Unknown Rx Strength] Albuterol Sulfate [Proair 90 mcg IH Q4HR PRN #2 aer.pow.ba 09/07/21 Unknown Rx Respiclick] Sherin Root [Sherin] 250 mg PO QID PRN #30 capsule 09/07/21 Unknown Rx Vit-Fe Fumar-FA [ 1 tab PO QDAY #30 tablet 09/07/21 Unknown Rx Vitamin] predniSONE [Deltasone] 40 mg PO QDAY #8 tab 09/07/21 Unknown Rx ED Physical Exam - General Limitations: No Limitations, Other (Chaperoned by Brittany Holland) General appearance: alert, in no apparent distress, obese - Head Head exam: Present: atraumatic, normocephalic - Eye Eye exam: Present: normal appearance, EOMI. Absent: nystagmus - ENT ENT exam: Present: normal exam, normal orophraynx, mucous membranes moist, normal external ear exam - Neck Neck exam: Present: normal inspection, full ROM. Absent: tenderness, meningismus - Respiratory Respiratory exam: Present: wheezes, rhonchi, chest wall tenderness. Absent: respiratory distress - Cardiovascular Cardiovascular Exam: Present: regular rate, normal rhythm, normal heart sounds. Absent: bradycardia, tachycardia, irregular rhythm, systolic murmur, diastolic murmur, rubs, gallop - GI/Abdominal GI/Abdominal exam: Present: soft. Absent: distended, tenderness, guarding, rebound, rigid, pulsatile mass - Extremities Exam Extremities exam: Present: normal inspection, full ROM, other (2+ pulses noted in the bilateral upper and lower extremities. There is no palpable cord. negative Homans sign. Muscular compartments are soft. The pelvis is stable.). Absent: pedal edema, calf tenderness - Back Exam Back exam: Present: normal inspection, full ROM, tenderness (Reproducible posterior muscular tenderness trapezius, parathoracic muscles, latissimus dorsi, paralumbar musculature), muscle spasm, paraspinal tenderness. Absent: CVA tenderness (R), CVA tenderness (L), vertebral tenderness - Neurological Exam Neurological exam: Present: alert, oriented X3, other (No facial droop. Tongue midline. Extraocular movements intact bilaterally. Facial sensation intact to light touch in V1, V2, V3 distribution bilaterally. 5 and a 5 strength in 4 extremities. Sensation intact to light touch in 4 extremities.) - Psychiatric Psychiatric exam: Present: anxious - Skin Skin exam: Present: warm, dry, intact, normal color. Absent: rash ED Course Vital Signs 09/06/21 09/06/21 09/06/21 22:07 22:42 22:47 Temperature 99.1 F Pulse Rate 90 Pulse Rate [ 81 Bilateral Throughout] Pulse Rate [ Sitting] Pulse Rate [ Standing] Respiratory 16 16 Rate Respiratory 20 Rate [Bilateral Throughout] Blood Pressure 144/70 Blood Pressure [Sitting] Blood Pressure [Standing] O2 Sat by Pulse 100 Oximetry 09/06/21 09/07/21 22:53 00:06 Temperature Pulse Rate Pulse Rate [ Bilateral Throughout] Pulse Rate [ 74 Sitting] Pulse Rate [ 102 H Standing] Respiratory Rate Respiratory Rate [Bilateral Throughout] Blood Pressure Blood Pressure 125/60 [Sitting] Blood Pressure 134/62 [Standing] O2 Sat by Pulse 100 Oximetry - Reevaluation(s) Reevaluation #1: 09/06/21 22:31 Differential diagnosis, including but not limited to: Bronchitis, orthostasis, vagal event, dehydration, electrolyte derangement, , ectopic , COVID-19, muscular back pain Assessment and plan: 20-year-old female who is currently afebrile, with reassuring vital signs, clinically sober, with a GCS of 15, with very faint wheezes, who is not currently tachycardic, tachypneic or hypoxic, who denies DVT and pulmonary embolism risk factors, who is low risk by Wells criteria for pulmonary embolism, who I have personally evaluated in the past for similar symptoms, with a prior history of negative D-dimer, who presents to the ER today with a number of symptoms, including muscular back pain, cough, mucus production, sensation of passing out approximately 10-1/2 hours ago, in the context of the COVID-19 pandemic, and not being vaccinated against COVID-19. Patient had a quant hCG approximately 10 days ago which was 12. Patient advised to not drive or operate motor vehicles for the next 6 months. Obtain appropriate laboratory studies, EKG, start albuterol, Atrovent, steroids and Tylenol for pain. Obtain urinalysis. Reassess after initial data points. If quant hCG positive today, will obtain obstetrics ultrasound to exclude ectopic , although abdomen is soft and benign without rebound, guarding or peritoneal signs, and I think ectopic is unlikely at this time. 09/07/21 01:56 Patient observed in this department for hours without clinical decompensation or recurrent episode of syncope. Also contacted therapist on-call, Dr. Figueroa Discussed the patient's history, physical, laboratory studies imaging studies, ultrasound findings, and clinical impression. We are both in agreement that it is reasonable to have the patient discharged to follow-up in 2 days for repeat ultrasound, and repeat evaluation. Urine drug screen positive for marijuana, the patient is clinically sober at this time. Urinalysis not consistent with UTI. No further wheezing. Ambulatory with a steady gait. Saturating 100% on room air. 09/07/21 02:29 ED Medical Decision Making - Lab Data Result diagrams: 09/06/21 22:59 09/06/21 22:59 Vital Signs 09/06/21 22:07 Temperature 99.1 F Pulse Rate 90 Respiratory 16 Rate Blood Pressure 144/70 O2 Sat by Pulse 100 Oximetry - EKG Data -: EKG Interpreted by Ar EKG shows normal: sinus rhythm Rate: normal - EKG Data 09/07/21 01:08 The EKG is interpreted at 23: 59 Sinus rhythm, rate 84 bpm. Normal axis, normal intervals, normal P wave axis, minimal motion artifact. Juvenile T wave inversion V2. Abnormal EKG. Not a STEMI. - Radiology Data Radiology results: pending, report reviewed, image reviewed ULTRASOUND OBSTETRIC REASON FOR EXAM: , history of syncope TECHNIQUE: Transabdominal and transvaginal ultrasound was performed to evaluate a first trimester . COMPARISON: None available. FINDINGS: FINDINGS: No intrauterine is visualized. No suspicious adnexal mass is visualized. MATERNAL FINDINGS: Uterus: The uterus demonstrates a normal sonographic appearance. The uterus measures 7.5 cm. Endometrial stripe measures 10 mm. Right ovary: Right ovary is not visualized. No cystic or solid mass in the right adnexa. Left ovary: Left ovary is not visualized. No cystic or solid mass in the left adnexa. Cul-de-sac: There is no free fluid. IMPRESSION: of unknown location. Findings could reflect an early intrauterine , occult ectopic , or recent spontaneous . In a hemodynamically stable patient, recommend follow-up with pelvic ultrasound in 7-10 days. Signer Name: Yobani Madison MD Signed: 09/07/2021 12:38 AM Workstation Name: [id number] Critical care attestation.: If time is entered above; I have spent that time in minutes in the direct care of this critically ill patient, excluding procedure time. ED Disposition Clinical Impression: COVID-19 vaccination not done, Reactive airway disease, Body mass index (BMI) 35 or more, History of syncope, Muscular pain, Disposition: 01 HOME / SELF CARE / HOMELESS Is pt being admited?: No Does the pt Need Aspirin: No Condition: Good Additional Instructions: Do not drive or operate motor vehicles for the next 6 months, or until cleared to do so by her primary care doctor, nursing assistants teacher, or your personal physician. Patient may take [id number] Tylenol as needed for physical pain. Patient may take the albuterol as directed, and steroids as directed. Urine drug screen demonstrated the presence of marijuana. Please avoid consumption and exposure to marijuana, tobacco, alcohol, and smoke products. Recommend that patient lose weight and exercise as tolerated. Recommend the patient complete outpatient COVID-19 vaccination series. Patient's ultrasound today did not demonstrate an intrauterine . Recommend the patient follow-up in 2 days in the emergency room, or with an outpatient [facility] doctor, for repeat physical examination, and repeat ultrasound. Please take the vitamins as directed. Please return to the emergency room right away with new pain, worsened pain, migration of pain, projectile vomiting, change in mental status, confusion, inability tolerate liquid feeds, new, worsened or different symptoms not present on the initial emergency room evaluation Referrals: [facility] [Provider Group] - 3-5 Days [facility] [Provider Group] - 3-5 Days [facility] [Provider Group] - 3-5 Days [facility] [Provider Group] - 3-5 Days Forms: Work/School Release Form(ED)
[2021-09-06 23:48] LABS: INR 0.89 (0.87-1.13)
[2021-09-06 23:50] LABS: Blood Urea Nitrogen 10 mg/dL (7-17); Hemolysis Index 2
[2021-09-06 23:52] LABS: BUN/Creatinine Ratio 20
[2021-09-06 23:54] LABS: Bilirubin,Urine NEG (Negative); Blood,Urine NEG (Negative); Color,Urine Yellow (Yellow); Mucus,Urine FEW /HPF; Protein,Urine <15 mg/dL mg/dL (Negative); Urobilinogen,Urine < 2.0 mg/dL (<2.0)
[2021-09-06 23:55] LABS: Basophils % (Auto) 0.6 % (0.0-1.8); Eosinophils # (Auto) 0.3 K/mm3 (0.0-0.4); Hematocrit 32.3 % (30.3-42.9); Hemoglobin 10.5 gm/dl (10.1-14.3); Lymphocytes # (Auto) 1.7 K/mm3 (1.2-5.4); Lymphocytes % (Auto) 23.4 % (13.4-35.0); Mean Corpuscular HGB Conc 33 % (30-34); Mean Corpuscular Volume 82 fl (79-97); Monocytes # (Auto) 0.9 K/mm3 (0.0-0.8); Monocytes % (Auto) 11.5 % (0.0-7.3); Platelet Count 337 K/mm3 (140-440); Red Blood Count 3.93 M/mm3 (3.65-5.03); Red Cell Distribution Width 14.1 % (13.2-15.2)
[2021-09-06 23:59] LABS: Amphetamine Screen,Urine PRESUMPTIVE NEGATIVE; Benzodiazepines Screen,Urine PRESUMPTIVE NEGATIVE; Cannabinoid Screen,Urine PRESUMPTIVE POSITIVE; Cocaine Screen,Urine PRESUMPTIVE NEGATIVE; Methadone Screen,Urine PRESUMPTIVE NEGATIVE; Opiate Screen,Urine PRESUMPTIVE NEGATIVE
[2021-09-07 00:12] VITALS: BP 134/62
--- NOTE | 2021-09-07 01:43 | Ultrasound Report ---
ULTRASOUND OBSTETRIC REASON FOR EXAM: , history of syncope TECHNIQUE: Transabdominal and transvaginal ultrasound was performed to evaluate a first trimester pre gnancy. COMPARISON: None available. FINDINGS: FINDINGS: No intrauterine is visualized. No suspicious adnexal mass is visualized. MATERNAL FINDINGS: Uterus: The uterus demonstrates a normal sonographic appearance. The uterus measures 7.5 cm. Endometr ial stripe measures 10 mm. Right ovary: Right ovary is not visualized. No cystic or solid mass in the right adnexa. Left ovary: Left ovary is not visualized. No cystic or solid mass in the left adnexa. Cul-de-sac: There is no free fluid. IMPRESSION: of unknown location. Findings could reflect an early intrauterine , occult ectopic , or recent spontaneous . In a hemodynamically stable patient, recommend follow-up with pelvic ultrasound in 7-10 days. Signer Name: Yobani Madison MD Signed: 09/07/2021 1:38 AM Workstation Name: [id number]
--- NOTE | 2021-09-07 02:04 | Ultrasound Report ---
ULTRASOUND OBSTETRIC, TRANSVAGINAL REASON FOR EXAM: , history of syncope TECHNIQUE: Transvaginal ultrasound was performed to evaluate a first trimester . COMPARISON: Same-day transabdominal ultrasound. FINDINGS: Transvaginal evaluation was obtained. On transvaginal images, there is increased conspicuity of a 6 m m intrauterine cystic structure in the region of the endometrium with mild decidual reaction. This is consistent with a gestational sac. Sac diameter corresponds to a gestational age of 5 weeks and 2 da ys. Tiny yolk sac is suspected. No pole is identified at this time. Right left ovary are unrema rkable. No free fluid. IMPRESSION: Transvaginal images demonstrate increased conspicuity of a small intrauterine gestational sac with pr obable yolk sac. Mean sac diameter corresponds to a gestational age of 5 weeks and 2 days. No p ole is identified at this time, likely related to early gestation. In a hemodynamically stable patien t, recommend follow-up with pelvic ultrasound in 7-10 days. Signer Name: Yobani Madison MD Signed: 09/07/2021 2:00 AM Workstation Name: [id number]
--- NOTE | 2021-09-07 10:27 | Electrocardiograph Report ---
[facility] Test Date: 2021-09-06 Test Time: 23:59:18 Pat Name: JAE DUNN Department: Room: Gender: F Punch Card Operator: JODY TANGB: [id number] Requested By: JARROD KELLY Order Number: [id number] Reading MD: Akbar Cheney Measurements Intervals [place] Rate: 84 P: 61 IA: 185 QRS: 67 QRSD: 87 T: 47 QT: 363 QTc: 430 Interpretive Statements Sinus rhythm Compared to ECG 07/12/2021 13:21:28 No significant changes Electronically Signed On 09-07-2021 10:27:41 EST by Akbar Cheney
== END 2021-09-07 02:45 | disposition home or self-care (01) ==
LOC: ED 21:31
DX: O26.891 Other specified pregnancy related conditions, first trimester (principal); O99.511 Diseases of the respiratory system complicating pregnancy, first trimester; Z68.35 Body mass index [BMI] 35.0-35.9, adult; M79.10 Myalgia, unspecified site; Z79.899 Other long term (current) drug therapy; Z3A.00 Weeks of gestation of pregnancy not specified
CPT/HCPCS: 36415; 76801; 76817; 80048; 80307; 81001; 82550; 83735; 84484; 84702; 85025; 85610; 86850; 86900; 86901; 87086; 93005; 93010; 94640; 94644; 99284

== ENCOUNTER 2022-03-19 07:26 | Outpatient (CLI) | payer MEDICAID ==
[2022-03-19 08:59] LABS: Mucus,Urine FEW /HPF; RBC,Urine < 1.0 /HPF (0.0-6.0)
[2022-03-19 09:02] LABS: Color,Urine Straw (Yellow)
[2022-03-19] MEDS ORDERED: D5W/LACTATED RINGERS 1,000 ML IV SCH (10:00)
[2022-03-19] MEDS ORDERED: LACTATED RINGERS 500 ML IV ONE (10:36)
[2022-03-19 10:46] VITALS: BP 120/65
--- NOTE | 2022-03-19 13:58 | Ultrasound Report ---
ULTRASOUND OBSTETRIC LIMITED ULTRASOUND BIOPHYSICAL PROFILE INDICATION / CLINICAL INFORMATION: DECREASE MOVEMENT. - Clinical Gestational Age (GA) in weeks, days: 33, 4 TECHNIQUE: Transabdominal. COMPARISON: None available. FINDINGS: BREATHING MOVEMENT = 2 GROSS BODY MOVEMENT = 2 TONE = 2 QUALITATIVE AMNIOTIC FLUID VOLUME = 2 TOTAL BIOPHYSICAL SCORE = 8/8 HEART RATE (beats per minute): 146 AMNIOTIC FLUID INDEX (cm) = 9.2 (normal = 7-24 cm) PRESENTATION: Cephalic. ADDITIONAL FINDINGS: None. IMPRESSION: 1. Biophysical Score = 8/8 2. Amniotic fluid index of 9.2. Signer Name: Jon No MD Signed: 03/19/2022 1:53 PM Workstation Name: [email or web address]
== END 2022-03-19 10:52 | disposition home or self-care (01) ==
LOC: TRG 07:26 → EDSTATUS 07:57 → APU 07:58 → TRG 10:52
PROVIDERS: ATTEND Obstetrics & Gynecology
DX: O36.8130 Decreased fetal movements, third trimester, not applicable or unspecified (principal); O99.513 Diseases of the respiratory system complicating pregnancy, third trimester; J45.909 Unspecified asthma, uncomplicated; O99.013 Anemia complicating pregnancy, third trimester; D64.9 Anemia, unspecified; Z3A.33 33 weeks gestation of pregnancy
CPT/HCPCS: 59025; 76815; 76819; 81001; 96360; 96361; J7121; J7060